=== PATIENT | male | born 1975 | race Caucasian/White ===

== ENCOUNTER 2020-08-08 07:17 | Emergency (ER) | payer MEDICAID, SELFPAY ==
[2020-08-08 07:18] VITALS: BP 168/96; PULSE 68; RESP 13; TEMP 36.4; O2SAT 94; BMI 24.2
--- NOTE | 2020-08-08 07:28 | EKG12_ITS ---
Test Reason : Blood Pressure : / mmHG Vent. Rate : 063 BPM Atrial Rate : 063 BPM P-R Int : 134 ms QRS Dur : 104 ms QT Int : 446 ms P-R-T Axes : 026 090 070 degrees QTc Int : 456 ms Sinus rhythm with occasional Premature ventricular complexes Rightward axis Borderline ECG Confirmed by GIACOMO AVILEZ, ROSA ([id number]), publishing editor RUSSEL WHITESIDE ([id number]) on 08/10/2020 8:36:28 AM Referred By: Confirmed By:ROSA GOODEN MD
[2020-08-08] MEDS: Morphine 4 MG/ML Syringe IV ×2 (07:33→08:55)
[2020-08-08] MEDS: Ondansetron 4 MG/2 ML Vial IV (07:33)
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
[2020-08-08 07:41] LABS: Absolute Lymphocyte Count 1.81 X10^3/uL (0.83-4.51); Absolute Neutrophil Count 5.7 X10^3/uL (2.0-7.7); Basophil# 0.06 X10^3/uL; Basophil% 0.7 % (0-1); Eosinophil# 0.25 X10^3/uL; Eosinophils% 2.9 % (0-5); Hematocrit 34.9 % (40-54); Hemoglobin 11.9 g/dL (13.0-16.5); Lymphocyte # 1.81 X10^3/ul (4.0); Lymphocyte % 21.3 % (19-41); Mean Corp Hgb Conc 34.1 g/dL (32-36); Mean Corpuscular Hgb 29.5 pg (27.0-32.0); Mean Corpuscular Volume 86.6 fL (80-94); Mean Platelet Vol. 9.4 fl (6.2-12.0); Monocyte# 0.69 X10^3/uL; Monocyte% 8.1 % (0-10); NRBC Flagged by Analyzer 0 % (0-5); Neutrophil # 5.66 X10^3/uL (2.7-7.7); Neutrophil % 66.8 % (47-70); Platelet Count 237 K/mm3 (150-450); RBC Distribution Width CV 12.2 % (11.6-14.6); RBC Distribution Width SD 38.7 fl (35.1-43.9); Red Blood Count 4.03 M/mm3 (4.6-6.2); White Blood Count 8.5 K/mm3 (4.4-11.0)
[2020-08-08] MEDS: 0.9% Normal Saline 1,000 ML 150 ML IV (07:44)
[2020-08-08 07:46] LABS: Bacteria 0 SEEN /hpf (None Seen); Mucous, Urine 0 SEEN /hpf (<or=2+); Squamous Epithelial Cells - UA 0 SEEN /hpf (0-5); White Blood Cells 0 SEEN /hpf (0-5)
--- NOTE | 2020-08-08 07:46 | ED.RN ---
attempted to call girlfriend at pt request. unable to leave a message and she did not waste picker
[2020-08-08 07:48] LABS: Color, Urine Yellow (Yellow); Glucose, Dipstick Normal (Normal); Ketone-Dipstick Negative (Negative); Leukocyte Esterase-Dipstick Negative /ul (Negative); Nitrite-Dipstick Negative (Negative); Occult Blood-Urine 10 /ul (Negative); Protein-Dipstick 15 mg/dl (Negative); Specific Gravity, Urine 1.015 (1.002-1.030); Urine Bilirubin Dipstick Negative (Negative); Urine Clarity Clear (Clear); Urine Urobilinogen Normal (Normal); Urine pH 6.5 (5.0 - 8.0)
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
[2020-08-08 07:59] LABS: ALB/GLOB Ratio 1.1 RATIO (0.9-2.4); AST(SGOT) 112 U/L (15-37); Alanine Aminotransfer ALT/SGPT 66 U/L (16-61); Albumin, Serum 3.7 g/dL (3.2-5.0); Alkaline Phosphatase 73 U/L (45-117); Anion Gap 5 (5-15); BUN 33 mg/dL (7-18); BUN/Creat Ratio 34.4 RATIO (10-20); Calcium,Total 8.8 mg/dL (8.5-10.1); Chloride 107 mmol/L (98-107); Creatinine, Serum 0.96 mg/dL (0.70-1.30); EST Glomerular Filtration Rate 89 mL/min (>60); Est Glom Filt Rate - Afr Amer 108 mL/min (>60); Estimated Creatinine Clearance 95.13 ml/min; Globulin 3.4 g/dL (2.2-4.2); Glucose 111 mg/dL (74-106); Lipase 168 U/L (73-393); Potassium 3.2 mmol/L (3.5-5.1); Protein, Total 7.1 g/dL (6.4-8.2); Sodium Level 139 mmol/L (136-145)
[2020-08-08 08:03] LABS: Red Blood Cells-Urine 0-5 SEEN /hpf (0-5)
[2020-08-08 08:03] LABS: International Normalized Ratio 0.9
[2020-08-08 08:04] LABS: Partial Thromboplast Time 25.1 Seconds (24.1-36.2)
[2020-08-08 08:06] LABS: Alcohol, Blood (Medical)-Serum < 3.0 mg/dL
[2020-08-08 08:06] LABS: Amphetamine Urine VISTA POSITIVE (<1000 ng/mL); Barbiturate Urine VISTA NEGATIVE (< 200 ng/mL); Benzodiazepine Urine VISTA NEGATIVE (< 200 ng/mL); Cocaine Urine VISTA NEGATIVE (< 300 ng/mL); Ecstacy Urine VISTA POSITIVE (< 500 ng/mL); Methadone Urine VISTA NEGATIVE (< 300 ng/mL); PCP Urine VISTA NEGATIVE (< 25 ng/mL); THC Urine VISTA POSITIVE (< 50 ng/mL); Vista UDS pH Range 6
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
[2020-08-08 09:17] VITALS: BP 207/120; PULSE 75; RESP 18; O2SAT 94
[2020-08-08 09:18] VITALS: BP 207/120; PULSE 75; RESP 18; O2SAT 94
== END 2020-08-08 09:22 | disposition short-term general hospital (02) ==
PROVIDERS: Emergency Provider Emergency Medicine
DX: S42.215A Unspecified nondisplaced fracture of surgical neck of left humerus, initial encounter for closed fracture (principal); S20.219A Contusion of unspecified front wall of thorax, initial encounter; S02.2XXA Fracture of nasal bones, initial encounter for closed fracture; R79.89 Other specified abnormal findings of blood chemistry; F17.200 Nicotine dependence, unspecified, uncomplicated; V43.52XA Car driver injured in collision with other type car in traffic accident, initial encounter; Y93.I9 Activity, other involving external motion; Y92.410 Unspecified street and highway as the place of occurrence of the external cause; Y99.8 Other external cause status
CPT/HCPCS: 70450; 70486; 71045; 71260; 72125; 72170; 73030; 74177; 80053; 80307; 80320; 81001; 83690; 84484; 85025; 85610; 85730; 93005; 96361; 96374; 96375; 96376; 99285; J7030; Q9967; A4216; G0480; J2405

== ENCOUNTER 2022-12-11 10:02 | Day surgery (SDC) | payer MEDICAID, SELFPAY ==
[2022-12-11] VITALS (7 sets, daily range): BP systolic 117–139; BP diastolic 73–90; PULSE 63–76; RESP 16–17; TEMP 36.3–36.4; O2SAT 98–99; BMI 24.9
[2022-12-11] MEDS: Lactated Ringers 1,000 ML 15 ML IV (10:25)
--- NOTE | 2022-12-11 10:45 | COLBX_PTH ---
PATIENT: SHAMEKA HARDY LOC: EN U#:[id number] AGE/SX: 47/M ROOM: RE12/11/[address]: Dr. Sonido Powell MD : [id number] BED: DIS: 12/11/2022 SPEC #: [id number] RECD: 12/11/22 17:05 STATUS: MEEK TAVO #: [id number] GERHARD: 12/11/22 10:[address]: Sonido Powell DEPT: SURGICAL PATHOLOGY RECD BY: Nicole Melendez ENTERED: 12/12/22 10:36 SP TYPE: COLON BX OTHR DR: Dr. Teresa Torrez MD Tissues: Sigmoid colon biopsy Procedures: Surgery Specimen Level IV HEADER OPERATION: Colonoscopy ? open access (MAC) PRE-OP DIAGNOSIS: Screening TISSUE SUBMITTED: Sigmoid colon polyp MICROSCOPIC DIAGNOSIS Sigmoid colon polyp, biopsy: Fragments of hyperplastic polyp. AM:chin 12/13/2022 MICROSCOPIC DESCRIPTION Slides are reviewed. GROSS DESCRIPTION Received in fixative is one container labeled with the patient's name and designated sigmoid colon polyp. The specimen consists of a lew-pink polyp measuring 0.8 x 0.5 x 0.3 cm. A few fragments of fecal material are also noted. The entire specimen is submitted in one cassette. / SJ:rg 12/12/2022 TC:5 CPT: 02760
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
--- NOTE | 2022-12-11 11:58 | OP.COLON_ITS ---
Patient Name: Mir Thompson Procedure Date: 12/11/2022 11:29 AM Date of : 1975 Age: 47 Procedure: Colonoscopy Indications: Screening in patient at increased risk: Colorectal cancer in mother before age 60 Providers: Sonido Powell MD Referring MD: Sonido Powell MD Medicines: Monitored Anesthesia Care Patient Profile: This is a 47 year old male. Refer to note in patient chart for documentation of history and physical. Last Colonoscopy: none. The patient's first colonoscopy is today. Complications: No immediate complications. Procedure: Pre-Anesthesia Assessment: - Prior to the procedure, a History and Physical was performed, and patient medications and allergies were reviewed. The patient's tolerance of previous anesthesia was also reviewed. The risks and benefits of the procedure and the sedation options and risks were discussed with the patient. All questions were answered, and informed consent was obtained. Prior Anticoagulants: The patient has taken no previous anticoagulant or antiplatelet agents. After reviewing the risks and benefits, the patient was deemed in satisfactory condition to undergo the procedure. After I obtained informed consent, the scope was passed under direct vision. Throughout the procedure, the patient's blood pressure, pulse, and oxygen saturations were monitored continuously. The adult colonoscope was introduced through the anus and advanced to the cecum, identified by appendiceal orifice and ileocecal valve. The colonoscopy was performed without difficulty. The patient tolerated the procedure well. The quality of the bowel preparation was good. Scope In: 11:37:16 AM Scope Withdrawal Time 0 hours 6 minutes 16 seconds Scope Out: 11:53:13 AM Total Procedure Duration Time 0 hours 15 minutes 57 seconds Findings: A small polyp was found in the sigmoid colon. The polyp was removed with a hot snare. Resection and retrieval were complete. The exam was otherwise without abnormality on direct and retroflexion views. Impression: - One small polyp in the sigmoid colon, removed with a hot snare. Resected and retrieved. - The examination was otherwise normal on direct and retroflexion views. Recommendation: - Discharge patient to home. - Resume previous diet. - Continue present medications. - Await pathology results. - Repeat colonoscopy in 5 years for surveillance based on pathology results. Procedure Code(s): --- Professional --- 63088, 33, Colonoscopy, flexible; with removal of tumor(s), polyp(s), or other lesion(s) by snare technique Diagnosis Code(s): --- Professional --- Z80.0, Family history of malignant neoplasm of digestive organs D12.5, Benign neoplasm of sigmoid colon CPT copyright 2017 [employer]. All rights reserved. The codes documented in this report are preliminary and upon bad work gatherer review may be revised to meet current compliance requirements. Sonido Powell MD 12/11/2022 11:57:52 AM This report has been signed electronically. Number of Addenda: 0 Note Initiated On: 12/11/2022 11:29 AM
--- NOTE | 2022-12-11 11:59 | OP.CCLET_ITS ---
12/11/2022 Teresa Torrez [address] [phone] Re : Colonoscopy procedure for Mirreji Christiansonmonica Dear Dr. Torrez This procedure was performed on Sunday, December 11, 2022. My impressions and recommendations are as follows: Impressions : - One small polyp in the sigmoid colon, removed with a hot snare. Resected and retrieved. - The examination was otherwise normal on direct and retroflexion views. Recommendations : - Discharge patient to home. - Resume previous diet. - Continue present medications. - Await pathology results. - Repeat colonoscopy in 5 years for surveillance based on pathology results. My findings are described in the full procedure note, which is enclosed. If I can be of further assistance, please feel free to contact me at Doctor phone number(s): , Work: . Sincerely, Sonido Powell MD 12/11/2022 11:57:52 AM This report has been signed electronically.
== END 2022-12-11 12:53 | disposition home or self-care (01) ==
LOC: EN 10:05 → AC 10:07
PROVIDERS: PCP Internal Medicine Infectious Disease; Referring Provider Internal Medicine Infectious Disease; Visit Provider Surgery
PROC: 0DJD8ZZ Inspection of Lower Intestinal Tract, Via Natural or Artificial Opening Endoscopic (ICD-10-PCS; CPT 45378; principal; 2022-12-11 10:40)
DX: Z12.11 Encounter for screening for malignant neoplasm of colon (principal); D12.5 Benign neoplasm of sigmoid colon; I10 Essential (primary) hypertension; F17.210 Nicotine dependence, cigarettes, uncomplicated; Z79.1 Long term (current) use of non-steroidal anti-inflammatories (NSAID); Z80.0 Family history of malignant neoplasm of digestive organs
CPT/HCPCS: 45385; 88305; J7120; J2405

== ENCOUNTER → 2022-12-20 | Outpatient (CLI) | payer MEDICAID, SELFPAY ==
--- NOTE | 2022-12-20 18:07 | CT_ITS ---
STUDY: CT MAXILLOFACIAL SINUSES REASON FOR EXAM: Male, 47 years old. Sinusitis. RADIATION DOSAGE (If Supplied By Facility): CTDIvol = ( 33.06 ) mGy, DLP = ( 887.57 ) mGycm TECHNIQUE: The patient was scanned in a multi detector CT scanner. High resolution axial imaging was performed without the administration of intravenous contrast material. Sagittal and coronal images were reconstructed. Individualized dose optimization techniques were used for this CT. COMPARISON: August 08, 2020 CT scan sinuses FINDINGS: FRONTAL SINUSES: Normal aeration, without mucosal inflammatory disease. ETHMOIDAL SINUSES: There is minimal ethmoid sinus mucosal thickening. There is chronic inward deviation of the lower right lateral wall of the maxillary sinus status post trauma. MAXILLARY SINUSES: There is trace right-sided maxillary mucosal thickening similar to prior study. SPHENOIDAL SINUSES: Normal aeration, without mucosal inflammatory disease. There is patency of the bilateral maxillary infundibuli with normal uncinate processes, ethmoid bullae, and hiatus semilunaris. There is a sabine bullosa of the right middle turbinate. Normal bilateral inferior turbinates. There is slight irregularity of the midline nasal septum with slight angulation to the left which may be posttraumatic. There is mild narrowing of the left greater than right nasal airways due to the hypertrophy of the inferior aspect of the left inferior turbinate. The visualized osseous structures demonstrate prior fractures. The visualized bilateral orbital contents are normal. There are chronic appearing bilateral cortical irregularities of the Nasal Bones status post nasal bone fractures that were seen on the prior study. There is partial visualization calcification of the carotid arteries. The visualized degenerative change of the cervical spine. The cerebral ventricles are symmetric. There is no visualized midline shift, edema. CT/Sinus/Facial Bone IMPRESSION: Minimal mucoid thickening. Minimal ethmoid sinusitis. Small right side middle turbinate sabine bullosa. Posttraumatic change of the bilateral nasal bones and septum and right maxillary sinus.. Electronically Signed: Brenda Dyson MD at 23:02 EST ,
== END | disposition home or self-care (01) ==
PROVIDERS: PCP Internal Medicine Infectious Disease; Visit Provider Otolaryngology
DX: J32.9 Chronic sinusitis, unspecified (principal)
CPT/HCPCS: 70486

== ENCOUNTER → 2023-05-17 | Outpatient (CLI) | payer MEDICAID, SELFPAY ==
--- NOTE | 2023-05-17 11:49 | EKG12_ITS ---
Test Reason : PREOP Blood Pressure : / mmHG Vent. Rate : 077 BPM Atrial Rate : 077 BPM P-R Int : 124 ms QRS Dur : 096 ms QT Int : 382 ms P-R-T Axes : 008 088 083 degrees QTc Int : 432 ms Normal sinus rhythm Normal ECG Confirmed by MICHAEL AVILEZ, SERENITY ([id number]), photography editor RUSSEL WHITESIDE ([id number]) on 05/20/2023 1:09:38 PM Referred By: Jerrod Dyer Confirmed By:EDMOND RODRIGUEZ MD
== END | disposition home or self-care (01) ==
LOC: PSN 11:48
PROVIDERS: PCP Internal Medicine Infectious Disease; Referring Provider Otolaryngology; Visit Provider Otolaryngology
DX: Z01.818 Encounter for other preprocedural examination (principal)
CPT/HCPCS: 93005

== ENCOUNTER → 2023-05-22 | Outpatient (CLI) | payer MEDICAID, SELFPAY ==
[2023-05-22 16:14] LABS: Hemoglobin 13.4 g/dL (13.0-16.5); Mean Corp Hgb Conc 35.3 g/dL (32-36); Mean Corpuscular Hgb 31.4 pg (27.0-32.0); Mean Platelet Vol. 9.4 fl (6.2-12.0); Platelet Count 258 K/mm3 (150-450); RBC Distribution Width SD 39.1 fl (35.1-43.9); Red Blood Count 4.27 M/mm3 (4.6-6.2); White Blood Count 7.7 K/mm3 (4.4-11.0)
[2023-05-22 16:39] LABS: Anion Gap 7 (5-15); BUN 19 mg/dL (7-18); BUN/Creat Ratio 19.2 RATIO (10-20); Calcium,Total 8.4 mg/dL (8.5-10.1); Chloride 105 mmol/L (98-107); Creatinine, Serum 0.99 mg/dL (0.70-1.30); EST Glomerular Filtration Rate 85 mL/min (>60); Est Glom Filt Rate - Afr Amer 103 mL/min (>60); Glucose 113 mg/dL (74-106); Potassium 3.8 mmol/L (3.5-5.1); Sodium Level 134 mmol/L (136-145)
== END | disposition home or self-care (01) ==
LOC: LAB 15:41
PROVIDERS: PCP Internal Medicine Infectious Disease; Referring Provider Otolaryngology; Visit Provider Otolaryngology
DX: Z01.818 Encounter for other preprocedural examination (principal)
CPT/HCPCS: 36415; 80048; 85027

== ENCOUNTER → 2024-05-05 | Outpatient (CLI) | payer BC, SELFPAY | END | disposition home or self-care (01) | LOC: LAB 16:17 | PROVIDERS: PCP Internal Medicine Infectious Disease; Referring Provider Urology; Visit Provider Urology | DX: Z12.5 Encounter for screening for malignant neoplasm of prostate (principal) | CPT/HCPCS: 36415; 84153; G0103 ==

== ENCOUNTER 2025-08-15 03:30 | Emergency (ER) | payer OTHER, SELFPAY ==
[2025-08-15 03:32] VITALS: BP 142/82; PULSE 111; RESP 16; TEMP 36.6; O2SAT 98; BMI 26.3
--- NOTE | 2025-08-15 04:03 | EX.ED.DYSGE1 ---
HPI History of Present Illness Chief Complaint: Wound Informant: patient and spouse/S.O. Narrative Narrative: Patient is a 50-year-old male presenting with a painful abscess on the buttock. - Reports a recurrent abscess on the buttock that has been present for approximately one year, but started recurring 1 week ago. - Over the past few days, the abscess has become increasingly painful and enlarged. - Noticed significant enlargement and spontaneous drainage after showering tonight. - Denies fever or other systemic symptoms. PFSH PFSH Medical History Loss of hearing Wears dentures Depression Anxiety Marijuana use Alcohol use History of steroid therapy Arthritis Restless legs Injury of head and neck Loss of consciousness Shortness of breath on exertion Chronic cough History of edema Smoker History of irregular heartbeat Seasonal allergies GERD (gastroesophageal reflux disease) Anxiety and depression HTN (hypertension) Home Medications ?Medication ?Instructions ?Recorded ?Last Taken ?Type acetaminophen 325 mg tablet 325 mg PO ONCE PRN Pain 11/22/22 Unknown History ibuprofen 400 mg tablet 400 mg PO Q8H PRN Pain 12/10/22 Unknown History sulfamethoxazole 800 1 tab PO BID #20 TABLETS 08/15/25 Unknown Rx mg-trimethoprim 160 mg tablet tamsulosin 0.4 mg capsule 0.4 mg PO DAILY 08/15/25 Unknown History Allergy/AdvReac Type Severity Reaction Status Date / Time No Known Allergies Allergy Verified 08/15/25 03:37 Family History (Updated 11/22/22 @ 12:37 by Chelsea Velásquez) Father Colon cancer Surgical History Hx of tooth extraction Social History (Updated 11/22/22 @ 12:37 by Chelsea Velásquez) household members: spouse current occupational status: employed Smoking Status: Current every day smoker tobacco type: cigarettes ROS ROS ED ROS Narrative Constitutional: (-) fever Musculoskeletal: (+) buttock pain Skin: (+) buttock swelling, (+) purulent buttock drainage Constitutional Constitutional ED: Denies chills or fever(s) EXAM Physical Exam Narrative Exam Narrative: General: No acute distress. Skin: Three centimeter erythematous abscess with small amount of spontaneous purulent drainage on left buttock. Const Vital Signs: 08/15/25 03:32 Temperature 97.8 F Temperature Source Oral Pulse Rate 111 H Respiratory Rate 16 Blood Pressure 142/82 H Blood Pressure Mean 102 Pulse Ox 98 Oxygen Delivery Method Room Air Resp normal respiratory effort Extremity normal to inspection Neuro oriented x3, CN's II-XII intact bilaterally, no sensory deficits noted and gait normal Motor Exam: strength 5/5 throughout MDM MDM MDM Narrative Medical decision making narrative: Evaluation is consistent with a cutaneous abscess on the left buttock. It was incised and drained after informed consent; please see the procedure note. He will be started on Bactrim, which provides the best MRSA coverage on an outpatient basis according to our most recent antibiogram. He will also use sitz baths and follow up on an outpatient basis with surgery as needed, or return to the ER if his condition worsens. He is comfortable with this plan. Procedures Other Procedures Procedure(s): Complex abscess incision and drainage: After informed consent from the patient, the area was sterilized with chlorhexidine draped in a sterile fashion, locally anesthetized with a total of 5 cc of plain 1% lidocaine, incised centrally, purulence was expressed, the area was deloculated with hemostats, irrigated with saline from the inside out, and packed with quarter inch iodoform gauze. Tolerated well no complications, dressed with bacitracin. Discharge Plan Triage Chief Complaint: Wound ED Provider: Luis Merritt Dx/Rx/DC Orders Clinical Impression: Abscess of left buttock Instructions: Taking a Sitz Bath, ED Abscess Incision And Drainage Prescriptions: New sulfamethoxazole-trimethoprim 800-160 mg tablet 1 tab PO BID Qty: 20 0RF No Action acetaminophen 325 mg tablet 325 mg PO ONCE PRN (Reason: Pain) ibuprofen 400 mg Tablet 400 mg PO Q8H PRN (Reason: Pain) tamsulosin 0.4 mg capsule 0.4 mg PO DAILY Primary Care Provider: Care Physician,No Primary Referrals: Sonido Powell MD [Med Staff - Active Staff, General Surgery] - 3-5 Days if not improving Activity Restrictions/Additional Instructions: Try to leave packing intact for 48 hours and then remove and discard. If it falls out earlier than that, do not worry about it, just continue dressing changes. If there is any water that gets into the area after a shower or what not, you may gently apply pressure to the surrounding area to express it prior to a new dressing change. Antibiotic ointment on the area with these dressing changes okay as well. If you are concerned about it recurring or getting worse, return to the ER for reevaluation. Perform sitz bath as 2-3 times daily for the first 2 days while packing is in place. Print Language: Egyptian Disposition Disposition: Home, Self Care
[2025-08-15] MEDS: Lidocaine 1% (20 ml mdv) 20 ML Vial INFILT (04:15)
--- OUTSIDE RECORDS SUMMARY | 2025-08-15 04:35 | XMS RPT_ITS | CCD ---
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 in humans and is not intended to detect influenza C. Performed By: #### F GAVIN, COVD19 #### [address] [place], [place] [address] RSV PCR (AO) Negative Normal Negative [facility] ([place]) Comment on above: Result Comment: Posi tive Results: Positive Flu A/B or RSV for by PCR. Positive test results do not rule out bacterial infection or co-infection with other pathogens. Test results should be interpreted in conjunction with other laboratory and clinical data. Negative Results: Negative for by PCR. Negative test results do not preclude influenza virus or RSV infection and should not be used as the sole basis for diagnosis, treatment, or other management decisions. There is a risk of false negative RSV results when at low concentration and in the presence of co-infection with high concentration of influenza A. Invalid Results: An Invalid result (INV) was obtained. The test was repeated with similar results. REPEAT COLLECTION AND TESTING IS RECOMMENDED. The [employer] Flu A/B & RSV Assay is a real-time polymerase chain reaction (PCR) based qualitative in vitro diagnostic test for the direct detection and differentiation of influenza A virus, influenza B virus, and respiratory syncytial virus (RSV) nucleic acid in nasopharyngeal swab ([employer]PA[employer] SUPER[employer]OR) specimens from patients with signs and symptoms of respiratory infection in conjunction with clinical and laboratory findings. The test is intended for use as an aid in the differential diagnosis of influenza A virus, influenza B virus, and RSV in humans and is not intended to detect influenza C. Performed By: #### F PATRICKRSV, COVD19 #### [address] [place], [place] [address] LABORATORYOrdered By: Felicita Levine on 10-29-2023 FLUAV RNA DANGELO+probe Ql (Upper resp) Negative 1 (10/29/23 8:09 PM) Normal Negative AO Auto Urine SS Comment on above: Interpretive Data: P ositive Results: Positive Flu A/B or RSV for by PCR. Positive test results do not rule out bacterial infection or co-infection with other pathogens. Test results should be interpreted in conjunction with other laboratory and clinical data. Negative Results: Negative for by PCR. Negative test results do not preclude influenza virus or RSV infection and should not be used as the sole basis for diagnosis, treatment, or other management decisions. There is a risk of false negative RSV results when at low concentration and in the presence of co-infection with high concentration of influenza A. Invalid Results: An Invalid result (INV) was obtained. The test was repeated with similar results. REPEAT COLLECTION AND TESTING IS RECOMMENDED. The [employer] Flu A/B & RSV Assay is a real-time polymerase chain reaction (PCR) based qualitative in vitro diagnostic test for the direct detection and differentiation of influenza A virus, influenza B virus, and respiratory syncytial virus (RSV) nucleic acid in nasopharyngeal swab ([employer]PA[employer]PER[employer]OR) specimens from patients with signs and symptoms of respiratory infection in conjunction with clinical and laboratory findings. The test is intended for use as an aid in the differential diagnosis of influenza A virus, influenza B virus, and RSV in humans and is not intended to detect influenza C. FLUBV RNA DANGELO+probe Ql (Upper resp) Negative 2 (10/29/23 8:09 PM) Normal Negative AO Auto Urine SS Comment on above: Interpretive Data: P ositive Results: Positive Flu A/B or RSV for by PCR. Positive test results do not rule out bacterial infection or co-infection with other pathogens. Test results should be interpreted in conjunction with other laboratory and clinical data. Negative Results: Negative for by PCR. Negative test results do not preclude influenza virus or RSV infection and should not be used as the sole basis for diagnosis, treatment, or other management decisions. There is a risk of false negative RSV results when at low concentration and in the presence of co-infection with high concentration of influenza A. Invalid Results: An Invalid result (INV) was obtained. The test was repeated with similar results. REPEAT COLLECTION AND TESTING IS RECOMMENDED. The [employer] Flu A/B & RSV Assay is a real-time polymerase chain reaction (PCR) based qualitative in vitro diagnostic test for the direct detection and differentiation of influenza A virus, influenza B virus, and respiratory syncytial virus (RSV) nucleic acid in nasopharyngeal swab ([employer]PA[employer]PER[employer]OR) specimens from patients with signs and symptoms of respiratory infection in conjunction with clinical and laboratory findings. The test is intended for use as an aid in the differential diagnosis of influenza A virus, influenza B virus, and RSV in humans and is not intended to detect influenza C. RSV RNA DANGELO+probe Ql (Upper resp) Negative 3 (10/29/23 8:09 PM) Normal Negative AO Auto Urine SS Comment on above: Interpretive Data: P ositive Results: Positive Flu A/B or RSV for by PCR. Positive test results do not rule out bacterial infection or co-infection with other pathogens. Test results should be interpreted in conjunction with other laboratory and clinical data. Negative Results: Negative for by PCR. Negative test results do not preclude influenza virus or RSV infection and should not be used as the sole basis for diagnosis, treatment, or other management decisions. There is a risk of false negative RSV results when at low concentration and in the presence of co-infection with high concentration of influenza A. Invalid Results: An Invalid result (INV) was obtained. The test was repeated with similar results. REPEAT COLLECTION AND TESTING IS RECOMMENDED. The [employer] Flu A/B & RSV Assay is a real-time polymerase chain reaction (PCR) based qualitative in vitro diagnostic test for the direct detection and differentiation of influenza A virus, influenza B virus, and respiratory syncytial virus (RSV) nucleic acid in nasopharyngeal swab ([employer]BI[employer] REPAIR SUPERVISOR) specimens from patients with signs and symptoms of respiratory infection in conjunction with clinical and laboratory findings. The test is intended for use as an aid in the differential diagnosis of influenza A virus, influenza B virus, and RSV in humans and is not intended to detect influenza C. SARS-CoV-2 (COVID-19) RNA DANGELO+probe Ql (Resp) Negative results do not preclude SARS-CoV-2 infection and should not be used as the sole basis for patient management decisions. Negative results must be combined with clinical observations, patient history, and epidemiological information.There is a risk of false negative values resulting from improperly collected, transported, or handled specimens.There is a risk of false negative values due to the presence of sequence variants in the pathogen targets of the assay, procedural errors, amplification inhibitors in specimens, or inadequate numbers of organisms for amplification.Nutshell SARS-CoV-2 Assay is a Real-Time reverse-transcriptas e polymerase chain reaction (RT-PCR) based qualitative in vitro diagnostic test intended for the qualitative detection of nucleic acid from the SARS-CoV-2 in nasopharyngeal swab specimens collected from individuals suspected of COVID-19 by their healthcare provider. Testing is limited to laboratories certified under the Clinical Laboratory Improvement Amendments of 1988 (CLIA), 42 U.S.C. 263a, to perform moderate and high complexity tests. Invalid Interpretation Code AO Auto Urine SS Basophil percentageOrdered B y: Tessy Dyer on 05-22-2023 Chloride [Moles/Vol] 105 mmol/L 98-107 [facility] Glucose [Mass/Vol] 113 mg/dL 74-106 [facility] Comment on above: Fasting Glucose resu lt from 100 to 125 mg/dL suggests IMPAIRED HOMEOSTASIS per A.D.A. criteria. Potassium [Moles/Vol] 3.8 mmol/L 3.5-5.1 [facility] Sodium [Moles/Vol] 134 mmol/L 136-145 [facility] WBC (Bld) [#/Vol] 7.7 10*3/uL 4.4-11.0 [facility] Blood erythrocytes count (nu mber/volume)Ordered By: Tessy Dyer on 05-22-2023 RBC (Bld) [#/Vol] 4.27 10*6/uL 4.6-6.2 [facility] Blood hemoglobin measurement (mass/volume)Ordered By: Tessy Dyer on 05-22-2023 Hemoglobin (Bld) [Mass/Vol] 13.4 g/dL 13.0-16.5 [facility] Blood platelet mean volumeOr dered By: Tessy Dyer on 05-22-2023 Platelet mean volume (Bld) [Entitic vol] 9.4 fL 6.2-12.0 [facility] Determination of erythrocyte mean corpuscular volume (MCV)Ordered By: Tessy Dyer on 05-22-2023 MCV (RBC) [Entitic vol] 89.0 fL 80-94 [facility] Hematocrit Auto (Bld) [Volum e fraction]Ordered By: Tessy Dyer on 05-22-2023 Hematocrit (Bld) [Volume fraction] 38.0 % 40-54 [facility] Laboratory - Chemistry and C hemistry - challengeOrdered By: Tessy Dyer on 05-22-2023 CO2 [Moles/Vol] 22.0 mmol/L 21.0-32.0 [facility] Urea nitrogen/Creatinine [Mass ratio] 19.2 mg/mg 10-20 [facility] - Hematology and Cell countsOrdered By: Tessy Dyer on 05-22-2023 Erythrocyte distribution width (RBC) [Entitic vol] 39.1 fL 35.1-43.9 [facility] Erythrocyte distribution width (RBC) [Ratio] 12.0 % 11.6-14.6 [facility] MCH (RBC) [Entitic mass] 31.4 pg 27.0-32.0 [facility] MCHC Auto (RBC) [Mass/Vol]Or dered By: Tessy Dyer on 05-22-2023 MCHC (RBC) [Mass/Vol] 35.3 g/dL 32-36 [facility] No Panel InformationOrdered By: Tessy Dyer on 05-22-2023 Estimated GFR (MDRD) Amer 103 mL/min >60 [facility] Comment on above: GFR Calc Estimated GFR (MDRD) Non-Af Amer 85 mL/min >60 [facility] Comment on above: Non- GFR Calc Platelets bldOrdered By: Everette Dyer on 05-22-2023 Platelets (Bld) [#/Vol] 258 10*3/uL 150-450 [facility] Serum or plasma calcium adamaris urement (mass/volume)Ordered By: Tessy Dyer on 05-22-2023 Calcium [Mass/Vol] 8.4 mg/dL 8.5-10.1 [facility] Serum or plasma creatinine m easurement (mass/volume)Ordered By: Tessy Dyer on 05-22-2023 Creatinine [Mass/Vol] 0.99 mg/dL 0.70-1.30 [facility] Comment on above: The validity of the calculated GFR & GFRAA in patients over 70 years has not been determined. Clinical correlation is essential. Serum or plasma urea nitroge n measurement (mass/volume)Ordered By: Tessy Dyer on 05-22-2023 Urea nitrogen [Mass/Vol] 19 mg/dL -18 [facility] Thin prep Papanicolaou smear with manual screeningOrdered By: Tessy Dyer on 05-22-2023 Thin prep Papanicolaou smear with manual screening 7 5-[address] [facility] [address] CHEST WO IVCONon 03-29-20 Radiology Result ACTIONABLE Abnormal [facility] Hemoglobin A1con 11-03-2021 Glucose [Mass/Vol] 114 mg/dL Normal [facility] Comment on above: Performed By: #### H BA1C #### [facility] Routine Lab [address] [place], [place] [address] HbA1c (Bld) [Mass fraction] 5.6 % Normal 4.3-5.6 [facility] Comment on above: Performed By: #### H BA1C #### [facility] Routine Lab [address] [place], [place] [address] SHOULDER, CMPLT, MIN 2 VIEWS on 10-27-2020 SHOULDER, CMPLT, MIN 2 VIEWS Patient Name: MIR THOMPSON STUDY: SHOULDER, CMPLT, MIN 2 VIEWS; Left; 10/27/2020 11:16 am INDICATION: left humerus fracture. COMPARISON: None. ACCESSION NUMBER(S): [id number] ORDERING CLINICIAN: ALESHA CUELLAR FINDINGS: Left shoulder-AP external and internal rotation The comminuted displaced fracture at the surgical neck of the humerus is unchanged in position from previous examinations, with some callus formation present particularly laterally. The degree of callus formation has increased since the last examination of 09/17/2020. IMPRESSION: Further increase in bony callus formation at the comminuted fracture site in the surgical neck of the humerus. Lateral displacement of the distal fracture fragment unchanged from prior studies. Electronically signed by: LISSETTE RITTER MD [facility] SHOULDER, CMPLT, MIN 2 VIEWS on 09-27-2020 SHOULDER, CMPLT, MIN 2 VIEWS Patient Name: MIR THOMPSON STUDY: SHOULDER, CMPLT, MIN 2 VIEWS; Left; 09/27/2020 10:16 am INDICATION: proximal humerus fracture. COMPARISON: 09/06/2020 ACCESSION NUMBER(S): [id number] ORDERING CLINICIAN: ALESHA CUELLAR FINDINGS: LEFT SHOULDER-INTERNAL AND EXTERNAL OBLIQUE POSITIONS Comparison to the last examination of 09/06/2020, shows no change in position of the comminuted fracture fragments in the surgical neck of the humerus . The multiple comminuted fracture fragments are best seen on the external oblique view. Very slight callus formation is seen, on the lateral aspect of the proximal humerus which however was not present previously. IMPRESSION: Severely comminuted fracture of the surgical neck of the humerus with minimal callus formation present. No change in position of the fracture fragments from the previous study. Electronically signed by: LISSETTE RITTER MD [facility] SHOULDER, CMPLT, MIN 2 VIEWS on 09-06-2020 SHOULDER, CMPLT, MIN 2 VIEWS Patient Name: MIR THOMPSON STUDY: SHOULDER, CMPLT, MIN 2 VIEWS; Left; 09/06/2020 8:42 am INDICATION: proximal humerus fracture. COMPARISON: 08/15/2020 ACCESSION NUMBER(S): [id number] ORDERING CLINICIAN: ALESHA CUELLAR FINDINGS: Two views left shoulder: There is a comminuted fracture of the proximal left humeral diaphysis with unchanged position of the fractures compared to 08/15/2020 There is 7 mm lateral displacement of the distal main fracture fragment. IMPRESSION: Unchanged appearance comminuted fracture proximal left humeral diaphysis. Electronically signed by: HINA SERRANO MD [facility] HUMERUS, MIN 2 VIEWSon 08-15 HUMERUS, MIN 2 VIEWS Patient Name: MIR THOMPSON STUDY: HUMERUS, MIN 2 VIEWS; 08/15/2020 12:01 pm INDICATION: LEFT ARM FRACTURE. COMPARISON: None. ACCESSION NUMBER(S): [id number] ORDERING CLINICIAN: ALESHA CUELLAR FINDINGS: There is a mildly displaced fracture of the left humeral neck. Small bone fragments are noted. No dislocation. Glenohumeral joint as visualized is unremarkable. AC joint is normal in width. IMPRESSION: Mildly displaced fracture of the left femoral neck with small adjacent bone fragments. Electronically signed by: PRAMOD PERDUE MD [facility] Otheron 08-15-2020 XR Humerus 2 views Interpreted by: PRAMOD PERDUE08/16/20 12:53MRN: [id number] Name: HAYLEY MIR STUDY:HUMERUS, MIN 2 VIEWS; 08/15/2020 12:01 pm INDICATION:LEFT ARM FRACTURE. COMPARISON:None. ORDERING CLINICIAN:ALESHA CUELLAR FINDINGS:There is a mildly displaced fracture of the left humeral neck. Smallbone fragments are noted. No dislocation. Glenohumeral joint asvisualized is unremarkable. AC joint is normal in width. IMPRESSION:Mildly displaced fracture of the left femoral neck with smalladjacent bone fragments.Electronic ally signed by: PRAMOD PERDUE 08/16/20 12:53 Normal [facility] [address] Work Phone: Basic Metabolic Panelon 07-13 Anion gap [Moles/Vol] 7 Normal [facility] Comment on above: Performed By: #### E TOH4, BMP3, PT/AP, HEMOG #### [facility] [address] [place] [address] Calcium [Mass/Vol] 8.0 mg/dL Low 8.4-10.4 [facility] Comment on above: Performed By: #### E TOH4, BMP3, PT/AP, HEMOG #### [address] [place] [address] CO2 [Moles/Vol] 22 mmol/L Normal 22-30 [facility] Comment on above: Performed By: #### E TOH4, BMP3, PT/AP, HEMOG #### [facility] [address] [place] [address] Glucose [Mass/Vol] 104 mg/dL High 70-100 [facility] Comment on above: Performed By: #### E TOH4, BMP3, PT/AP, HEMOG #### [address] [place] [address] Urea nitrogen [Mass/Vol] 16 mg/dL Normal 7-20 [facility] Comment on above: Performed By: #### E TOH4, BMP3, PT/AP, HEMOG #### [facility] [address] [place] [address] Creatinine [Mass/Vol] 0.60 mg/dL Normal 0.52-1.25 [facility] Comment on above: Performed By: #### E TOH4, BMP3, PT/AP, HEMOG #### [address] [place] [address] GFR/1.73 sq M predicted among blacks MDRD (S/P/Bld) [Vol rate/Area] mL/min/{1.73_m2} Normal >60 [facility] Comment on above: Performed By: #### E TOH4, BMP3, PT/AP, HEMOG #### [facility] [address] [place], [place] GFR/1.73 sq M predicted among non-blacks MDRD (S/P/Bld) [Vol rate/Area] mL/min/{1.73_m2} Normal >60 [facility] Comment on above: Result Comment: KDIG O guidelines provide the following GFR categories: Stage GFR(ml/min/1.73 m2) Terms G1 >=90 Normal or high G2 60-89 Mildly decreased* G3a 45-59 Mildly to moderately decreased G3b 30-44 Moderately to severely decreased G4 15-29 Severely decreased G5 <15 Kidney failure *Relative to young adult level. In the absence of evidence of kidney damage, neither GFR category G1 nor G2 fulfill the criteria for CKD. The CKD-EPI equation is validated in individuals 18 years of age and older. Currently the best equation for estimating glomerular filtration rate (GFR) from serum creatinine in children is the Bedside Roca equation. It is less accurate in patients with extremes of muscle mass, restriction of dietary protein, ingestion of creatine, extra-renal metabolism of creatinine, or treatment with medications that affect renal tubular creatinine secretion. Performed By: #### E TOH4, BMP3, PT/AP, HEMOG #### [address] [place], [place] Potassium [Moles/Vol] 3.7 mmol/L Normal 3.5-5.1 [facility] Comment on above: Result Comment: Slig htly hemolysed, interpret with caution. Performed By: #### E TOH4, BMP3, PT/AP, HEMOG #### [facility] [address] [place], [place] Sodium [Moles/Vol] 130 mmol/L Low 135-145 [facility] Comment on above: Performed By: #### E TOH4, BMP3, PT/AP, HEMOG #### [facility] [address] [place], [place] Chloride [Moles/Vol] 101 mmol/L Normal 98-107 [facility] Comment on above: Performed By: #### E TOH4, BMP3, PT/AP, HEMOG #### [facility] [address] [place] [address] Basic Metabolic Panel w/ Ref sarah to MGon 08-09-2020 Anion gap [Moles/Vol] 7 mmol/L [place], [place] Calcium [Mass/Vol] 8.0 mg/dL Low 8.4 - 10. 4 mg/dL [place], [place] Chloride [Moles/Vol] 101 mmol/L 98 - 10 7 mmol/L [place] CO2 [Moles/Vol] 22 mmol/L 22 - 30 mmol/L [place] Creatinine [Mass/Vol] 0.6 mg/dL 0.52 - 1.25 mg/dL [place], [place] EGFR IF NonAfrican [place] Citizen >90.0 >60 mL/min [place], [place] Comment on above: KDIGO guidelines pro vide the following GFR categories: Stage GFR(ml/min/1.73 m2) Terms G1 >=90 Normal or high G2 60-89 Mildly decreased* G3a 45-59 Mildly to moderately decreased G3b 30-44 Moderately to severely decreased G4 15-29 Severely decreased G5 <15 Kidney failure *Relative to young adult level. In the absence of evidence of kidney damage, neither GFR category G1 nor G2 fulfill the criteria for CKD. The CKD-EPI equation is validated in individuals 18 years of age and older. Currently the best equation for estimating glomerular filtration rate (GFR) from serum creatinine in children is the Bedside Roca equation. It is less accurate in patients with extremes of muscle mass, restriction of dietary protein, ingestion of creatine, extra-renal metabolism of creatinine, or treatment with medications that affect renal tubular creatinine secretion. GFR/1.73 sq M predicted among blacks MDRD (S/P/Bld) [Vol rate/Area] mL/min/{1.73_m2} >60 mL/min [place], [place] Glucose [Mass/Vol] 104 mg/dL High 70 - 100 mg/dL [place] Interpretation and review of laboratory results Abnormal [place] Potassium [Moles/Vol] 3.7 mmol/L 3.5 - 5.1 mmol/L [place] Comment on above: Slightly hemolysed, interpret with caution. Sodium [Moles/Vol] 130 mmol/L Low 135 - 145 mmol/L [place] Urea nitrogen [Mass/Vol] 16 mg/dL 7 - 20 mg/dL [place] Test Performed by [facility] [employer] [facility], [address] [place] [id number] [place], [place] CBCon 08-09-2020 Erythrocyte distribution width (RBC) [Ratio] 13.2 % 11.5 - 14.5 % [place], [place] Hematocrit (Bld) [Volume fraction] 37.2 % Low 40 - 52 % [place] Hemoglobin (Bld) [Mass/Vol] 12.7 g/dL Low 13 - 18 g/dL [place] Interpretation and review of laboratory results Abnormal [place] MCH (RBC) [Entitic mass] 30.0 pg 26 - 34 pg [place] MCHC (RBC) [Mass/Vol] 34.1 % 32 - 36 % [place], [place] MCV (RBC) [Entitic vol] 87.9 fL 80 - 98 fL [place], [place] Platelet mean volume (Bld) [Entitic vol] 7.8 fL 7.4 - 10.4 fL [place] Platelets (Bld) [#/Vol] 225 10*3/uL 140 - 440 10*3/uL [place] RBC (Bld) [#/Vol] 4.23 10*6/uL Low 4.4 - 5.9 10*6/uL [place] WBC (Bld) [#/Vol] 7.3 10*3/uL 3.6 - 10.7 10*3/uL [place], [place] Test Performed by [facility] [employer] [facility], [address] [place] [id number] [place], [place] Hemogramon 08-09-2020 Erythrocyte distribution width (RBC) [Ratio] 13.2 % Normal 11.5-14.5 [facility] Comment on above: Performed By: #### E TOH4, BMP3, PT/AP, HEMOG #### [address] [place], [place] Hematocrit (Bld) [Volume fraction] 37.2 % Low 40.0-52.0 [facility] Comment on above: Performed By: #### E TOH4, BMP3, PT/AP, HEMOG #### [address] Hemoglobin (Bld) [Mass/Vol] 12.7 g/dL Low 13.0-18.0 [facility] Comment on above: Performed By: #### E TOH4, BMP3, PT/AP, HEMOG #### [address] MCH (RBC) [Entitic mass] 30.0 pg Normal 26.0-34.0 [facility] Comment on above: Performed By: #### E TOH4, BMP3, PT/AP, HEMOG #### [address] MCHC (RBC) [Mass/Vol] 34.1 % Normal 32.0-36.0 [facility] Comment on above: Performed By: #### E TOH4, BMP3, PT/AP, HEMOG #### [address] MCV (RBC) [Entitic vol] 87.9 fL Normal 80.0-98.0 [facility] Comment on above: Performed By: #### E TOH4, BMP3, PT/AP, HEMOG #### [address] Platelet mean volume (Bld) [Entitic vol] 7.8 fL Normal 7.4-10.4 [facility] Comment on above: Performed By: #### E TOH4, BMP3, PT/AP, HEMOG #### [address] Platelets (Bld) [#/Vol] 225 10*3/uL Normal 140-440 [facility] Comment on above: Performed By: #### E TOH4, BMP3, PT/AP, HEMOG #### [address] [place], [place] RBC (Bld) [#/Vol] 4.23 10*6/uL Low 4.40-5.90 [facility] Comment on above: Performed By: #### E TOH4, BMP3, PT/AP, HEMOG #### [address] [place], [place] WBC (Bld) [#/Vol] 7.3 10*3/uL Normal 3.6-10.7 [facility] Comment on above: Performed By: #### E TOH4, BMP3, PT/AP, HEMOG #### [address] Basic Metabolic Panelon 07-13 Calcium [Mass/Vol] 8.6 mg/dL Normal 8.4-10.4 [facility] Comment on above: Performed By: #### E TOH4, BMP3, PT/AP, HEMOG #### [address] [place], [place] Anion gap [Moles/Vol] 10 Normal [facility] Comment on above: Performed By: #### E TOH4, BMP3, PT/AP, HEMOG #### [address] [place], [place] CO2 [Moles/Vol] 19 mmol/L Low 22-30 [facility] Comment on above: Performed By: #### E TOH4, BMP3, PT/AP, HEMOG #### [address] [address] [place], [place] Creatinine [Mass/Vol] 0.67 mg/dL Normal 0.52-1.25 [facility] Comment on above: Performed By: #### E TOH4, BMP3, PT/AP, HEMOG #### [address] GFR/1.73 sq M predicted among blacks MDRD (S/P/Bld) [Vol rate/Area] mL/min/{1.73_m2} Normal >60 [facility] Comment on above: Performed By: #### E TOH4, BMP3, PT/AP, HEMOG #### [address] [place], [place] GFR/1.73 sq M predicted among non-blacks MDRD (S/P/Bld) [Vol rate/Area] mL/min/{1.73_m2} Normal >60 [facility] Comment on above: Result Comment: KDIG O guidelines provide the following GFR categories: Stage GFR(ml/min/1.73 m2) Terms G1 >=90 Normal or high G2 60-89 Mildly decreased* G3a 45-59 Mildly to moderately decreased G3b 30-44 Moderately to severely decreased G4 15-29 Severely decreased G5 <15 Kidney failure *Relative to young adult level. In the absence of evidence of kidney damage, neither GFR category G1 nor G2 fulfill the criteria for CKD. The CKD-EPI equation is validated in individuals 18 years of age and older. Currently the best equation for estimating glomerular filtration rate (GFR) from serum creatinine in children is the Bedside Roca equation. It is less accurate in patients with extremes of muscle mass, restriction of dietary protein, ingestion of creatine, extra-renal metabolism of creatinine, or treatment with medications that affect renal tubular creatinine secretion. Performed By: #### E TOH4, BMP3, PT/AP, HEMOG #### [address] [address] [place], [place] Glucose [Mass/Vol] 110 mg/dL High 70-100 [facility] Comment on above: Performed By: #### E TOH4, BMP3, PT/AP, HEMOG #### [address] [address] [place], [place] Urea nitrogen [Mass/Vol] 25 mg/dL High 7-20 [facility] Comment on above: Performed By: #### E TOH4, BMP3, PT/AP, HEMOG #### [address] Chloride [Moles/Vol] 104 mmol/L Normal 98-107 [facility] Comment on above: Performed By: #### E TOH4, BMP3, PT/AP, HEMOG #### [address] Potassium [Moles/Vol] 3.5 mmol/L Normal 3.5-5.1 [facility] Comment on above: Performed By: #### E TOH4, BMP3, PT/AP, HEMOG #### [facility] [address] [place], [place] Sodium [Moles/Vol] 133 mmol/L Low 135-145 [facility] Comment on above: Performed By: #### E TOH4, BMP3, PT/AP, HEMOG #### [facility] [address] [place], [place]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 The patient denies glaucoma, denies eye injury/surgery, does not wear glasses or contacts. Ear/Nose/Throat: The patient notes allergies, denies hayfever, denies ear infections, and denies bloody noses. Cardiovascular: The patient denies chest pain, denies heart disease, notes high blood pressure,denies cardiac stent, denies prior heart attack, denies irregular heart beat, denies high cholesterol, denies poor circulation, denies heart failure, other cardiac issues, denies claudication, denies cold feet, denies peripheral arterial stent. Respiratory: The patient denies tuberculosis, denies pneumonia, denies frequent cough, denies pulmonary embolism, notes shortness of breath, and denies coughing up blood. Gastrointestinal: The patient denies difficulty swallowing, notes acid reflux, denies ulcers, denies vomiting, denies jaundice/hepatitis, denies gallbladder problems, denies black or tarry stools, denies hemorrhoids, denies bleeding from rectum, denies diverticulitis, denies constipation, denies diarrhea, denies loss of stool control, and denies hernias. Kidney/Bladder: The patient denies kidney stones, denies urine infections, and denies bloody urine. Skin: The patient denies a history of skin cancer, denies bleeding/changing moles, and denies a history of skin rash. Neurologic: The patient denies a history of epilepsy/convulsions, notes headaches, notes head/spinal injuries, and denies stroke/TIA. Psychiatric: The patient notes psychiatric medications (antidepressant), notes depression, and denies voices, notes substance abuse. Endocrine: The patient denies thyroid disorders, denies diabetes, and denies hormonal problems. Hematologic: The patient denies a history of bruising, denies bleeding, and denies anemia, denies blood clots. Infections: The patient denies a history of measles and mumps, denies rheumatic fever, and denies sexually transmitted diseases. Musculoskeletal: The patient notes back pain/injury, denies back problems, denies sciatica, denies knee/foot trouble, denies arthritis, or denies gout. When was patient's last Mammogram screening? N/A Last Colonoscopy: None noted Melissa Santana LPN documented in this encounter [facility] 12-04-2024 Note HNO ID: [id number] Author: MELISSA SANTANA LPN Service: ? Author Type: LICENSED NURSE Type: Progress Notes Filed: 12/04/2024 14:47 Note Text: REVIEW OF SYSTEMS: General: The patient denies fatigue, denies weight loss, denies weight gain, denies feeling hot, and denies feelings of cold. Eyes: The patient denies glaucoma, denies eye injury/surgery, does not wear glasses or contacts. Ear/Nose/Throat: The patient notes allergies, denies hayfever, denies ear infections, and denies bloody noses. Cardiovascular: The patient denies chest pain, denies heart disease, notes high blood pressure,denies cardiac stent, denies prior heart attack, denies irregular heart beat, denies high cholesterol, denies poor circulation, denies heart failure, other cardiac issues, denies claudication, denies cold feet, denies peripheral arterial stent. Respiratory: The patient denies tuberculosis, denies pneumonia, denies frequent cough, denies pulmonary embolism, notes shortness of breath, and denies coughing up blood. Gastrointestinal: The patient denies difficulty swallowing, notes acid reflux, denies ulcers, denies vomiting, denies jaundice/hepatitis, denies gallbladder problems, denies black or tarry stools, denies hemorrhoids, denies bleeding from rectum, denies diverticulitis, denies constipation, denies diarrhea, denies loss of stool control, and denies hernias. Kidney/Bladder: The patient denies kidney stones, denies urine infections, and denies bloody urine. Skin: The patient denies a history of skin cancer, denies bleeding/changing moles, and denies a history of skin rash. Neurologic: The patient denies a history of epilepsy/convulsions, notes headaches, notes head/spinal injuries, and denies stroke/TIA. Psychiatric: The patient notes psychiatric medications (antidepressant), notes depression, and denies voices, notes substance abuse. Endocrine: The patient denies thyroid disorders, denies diabetes, and denies hormonal problems. Hematologic: The patient denies a history of bruising, denies bleeding, and denies anemia, denies blood clots. Infections: The patient denies a history of measles and mumps, denies rheumatic fever, and denies sexually transmitted diseases. Musculoskeletal: The patient notes back pain/injury, denies back problems, denies sciatica, denies knee/foot trouble, denies arthritis, or denies gout. When was patient's last Mammogram screening? N/A Last Colonoscopy: None noted Melissa Santana LPN [facility] 11-27-2024 Note HNO ID: [id number] Author: UCHE PHOENIX MD Service: ? Author Type: Physician Type: Progress Notes Filed: 11/27/2024 14:40 Note Text: Patient presents with: Other: I think it's a boil in butt crack - Entered by patient Cyst: Pilonidal cyst x5 days HPI: Skin Lesion: Location: upper midline between buttocks to the left side Duration: flared up for 5 days. He has had the lesion flare up on multiple occasions but has never had medical care for it. Pruritis/Pain: painful Change: Drainage/blister/pustule/ulcerat ion: no drainage Treatment: warm compress MEDICATIONS: amoxicillin-clavulanate potassium (AUGMENTIN) 875-125 mg per tablet Take 1 tablet by mouth two times a day for 5 days. VITAMIN D-3 10 mcg (400 unit) cap tamsulosin (FLOMAX) 0.4 mg Take 1 capsule by mouth once daily. amLODIPine (NORVASC) 10 mg tablet Take 1 tablet by mouth once daily. acetaminophen (TYLENOL) 500 mg tablet Take 500 mg by mouth every 8 hours as needed. TRIAMCINOLONE ACETONIDE (NASACORT NASAL) Use in the nose as needed. ALLERGIES: ALLERGIES Allergen Reactions Chantix [Vareniclin* Other: See Comments Suicidal thoughts VITALS: BP 154/95 Pulse 81 Temp 36.7 ?C (98.1 ?F) Resp 18 Wt 77.3 kg (170 lb 6.7 oz) SpO2 99% BMI 25.91 kg/m? PHYSICAL EXAM: GEN: pleasant, no acute distress, alert HEENT: PERRL, EOMI, MMM NECK: supple, HEART: regular rate, regular rhythm, no murmurs LUNGS: clear to auscultation, no wheezes or crackles, no increased WOB ABD: soft, non-distended, no masses palpated, non-tender BUTTOCK: 2cm tender subcutaneous mass in the gluteal cleft to the left of midline over to coccyx . ASSESSMENT/PLAN: 1. Pilonidal cyst with abscess - ICD9: 685.0, ICD10: L05.01 Start - AMOXICILLIN 875 MG-POTASSIUM CLAVULANATE 125 MG TABLET Continue warm compress. - CONSULT TO GENERAL SURGERY to discuss options (definitive vs episodic treatment). Follow up sooner for IANDD if there is increasing pain, swelling, or fever. Uche Phoenix MD [facility] 11-27-2024 History of Presen t illness Narrative Patient presents with: Other: I think it's a boil in butt crack - Entered by patient Cyst: Pilonidal cyst x5 days HPI: Skin Lesion: Location: upper midline between buttocks to the left side Duration: flared up for 5 days. He has had the lesion flare up on multiple occasions but has never had medical care for it. Pruritis/Pain: painful Change: Drainage/blister/pustule/ulcerat ion: no drainage Treatment: warm compress MEDICATIONS: amoxicillin-clavulanate potassium (AUGMENTIN) 875-125 mg per tablet Take 1 tablet by mouth two times a day for 5 days. VITAMIN D-3 10 mcg (400 unit) cap tamsulosin (FLOMAX) 0.4 mg Take 1 capsule by mouth once daily. amLODIPine (NORVASC) 10 mg tablet Take 1 tablet by mouth once daily. acetaminophen (TYLENOL) 500 mg tablet Take 500 mg by mouth every 8 hours as needed. TRIAMCINOLONE ACETONIDE (NASACORT NASAL) Use in the nose as needed. ALLERGIES: ALLERGIES Allergen Reactions Chantix [Vareniclin* Other: See Comments Suicidal thoughts VITALS: BP 154/95 Pulse 81 Temp 36.7 C (98.1 F) Resp 18 Wt 77.3 kg (170 lb 6.7 oz) SpO2 99% BMI 25.91 kg/m PHYSICAL EXAM: GEN: pleasant, no acute distress, alert HEENT: PERRL, EOMI, MMM NECK: supple, HEART: regular rate, regular rhythm, no murmurs LUNGS: clear to auscultation, no wheezes or crackles, no increased WOB ABD: soft, non-distended, no masses palpated, non-tender BUTTOCK: 2cm tender subcutaneous mass in the gluteal cleft to the left of midline over to coccyx . ASSESSMENT/PLAN: 1. Pilonidal cyst with abscess - ICD9: 685.0, ICD10: L05.01 Start - AMOXICILLIN 875 MG-POTASSIUM CLAVULANATE 125 MG TABLET Continue warm compress. - CONSULT TO GENERAL SURGERY to discuss options (definitive vs episodic treatment). Follow up sooner for I&D if there is increasing pain, swelling, or fever. Uche Phoenix MD documented in this encounter [facility] 10-29-2023 Hospital Discharg e instructions Patient Education 10/29/2023 20:01:38 Viral Syndrome (Adult) Viral Syndrome (Adult) A viral illness may cause a number of symptoms such as fever. Other symptoms depend on the part of the body that the virus affects. If it settles in your nose, throat, and lungs, it may cause cough, sore throat, congestion, runny nose, headache, earache and other ear symptoms, or shortness of breath. If it settles in your stomach and intestinal tract, it may cause nausea, vomiting, cramping, and diarrhea. Sometimes it causes generalized symptoms like aching all over, feeling tired, loss of energy, or loss of appetite. A viral illness usually lasts anywhere from several days to several weeks, but sometimes it lasts longer. In some cases, a more serious infection can look like a viral syndrome in the first few days of the illness. You may need another exam and additional tests to know the difference. Watch for the warning signs listed below for when to seek medical advice. Home care Follow these guidelines for taking care of yourself at home: If symptoms are severe, rest at home for the first 2 to 3 days. Stay away from cigarette smoke - both your smoke and the smoke from others. You may use pohb-yrx-dqjeiuv acetaminophen or ibuprofen for fever, muscle aching, and headache, unless another medicine was prescribed for this. If you have chronic liver or kidney disease or ever had a stomach ulcer or gastrointestinal bleeding, talk with your healthcare provider before using these medicines. No one who is younger than 18 and ill with a fever should take aspirin. It may cause severe disease or . Your appetite may be poor, so a light diet is fine. Avoid dehydration by drinking 8 to 12, 8-ounce glasses of fluids each day. This may include water; orange juice; lemonade; apple, grape, and cranberry juice; clear fruit drinks; electrolyte replacement and sports drinks; and decaffeinated teas and coffee. If you have been diagnosed with a kidney disease, ask your healthcare provider how much and what types of fluids you should drink to prevent dehydration. If you have kidney disease, drinking too much fluid can cause it build up in the your body and be dangerous to your health. Tble-tcz-hovjcbh remedies won't shorten the length of the illness but may be helpful for symptoms such as cough, sore throat, nasal and sinus congestion, or diarrhea. Don't use decongestants if you have high blood pressure. Follow-up care Follow up with your healthcare provider if you do not improve over the next week. Call 911 Call 911 if any of the following occur: Convulsion Feeling weak, dizzy, or like you are going to faint Chest pain, or more than mild shortness of breath When to seek medical advice Call your healthcare provider right away if any of these occur: Cough with lots of colored sputum (mucus) or blood in your sputum Chest pain, shortness of breath, wheezing, or trouble breathing Severe headache; face, neck, or ear pain Severe, constant pain in the lower right side of your belly (abdominal) Continued vomiting (can t keep liquids down) Frequent diarrhea (more than 5 times a day); blood (red or black color) or mucus in diarrhea Feeling weak, dizzy, or like you are going to faint Extreme thirst Fever of 100.4 F (38 C) or higher, or as directed by your healthcare provider [id number] [employer]. [address] [place] [address]. All rights reserved. This information is not intended as a substitute for professional medical care. Always follow your healthcare professional's instructions. Follow Up Care 10/29/2023 19:03:28 With:Call Physician Referral Address:Unknown When:3-5 days With:Follow up with primary care provider Address:Unknown When:3-5 days Comments:Follow-up as needed if symptoms or not improving.Quarantine at home until you get the results of the viral testing.Push fluids and rest.Vaporizer at bedside.Use Tylenol, Advil or Aleve for pain and fever as needed.Use vkoi-mcc-odroptk cough and cold medicines for symptomatic relief as needed.Return to the ED if symptoms worsen. [facility] 10-29-2023 Note Discharge Instructions Thank you for allowing [place] to assist you with your healthcare needs. The following is important discharge information regarding your hospital visit. Diagnosis from Today's Visit Head pain What to Do Next Instructions from Your Care Team No qualifying data available. Post Acute Orders No qualifying data available. You Need to Schedule the Following Appointments Follow Up with Call Physician Referral When Within 3-5 days Follow Up with Follow up with primary care provider When Within 3-5 days Why: Follow-up as needed if symptoms or not improving. Quarantine at home until you get the results of the viral testing. Push fluids and rest. Vaporizer at bedside. Use Tylenol, Advil or Aleve for pain and fever as needed. Use xvth-efr-orzbggl cough and cold medicines for symptomatic relief as needed. Return to the ED if symptoms worsen. Allergies No Known Medication Allergies Medications Please ask your primary doctor or pharmacist before taking any other medication not listed, including over the counter drugs, herbal medications, vitamins and or supplements as they may interact with your home medications. Please take this list to your next doctor s visit. Bring all medications you take, including over the counter medications, herbals and other supplements with you to your doctor s visit. Patients and families are reminded to discard old lists and to update any records with all medication providers or retail pharmacies. Education Materials Viral Syndrome (Adult) A viral illness may cause a number of symptoms such as fever. Other symptoms depend on the part of the body that the virus affects. If it settles in your nose, throat, and lungs, it may cause cough, sore throat, congestion, runny nose, headache, earache and other ear symptoms, or shortness of breath. If it settles in your stomach and intestinal tract, it may cause nausea, vomiting, cramping, and diarrhea. Sometimes it causes generalized symptoms like aching all over, feeling tired, loss of energy, or loss of appetite. A viral illness usually lasts anywhere from several days to several weeks, but sometimes it lasts longer. In some cases, a more serious infection can look like a viral syndrome in the first few days of the illness. You may need another exam and additional tests to know the difference. Watch for the warning signs listed below for when to seek medical advice. Home care Follow these guidelines for taking care of yourself at home: If symptoms are severe, rest at home for the first 2 to 3 days. Stay away from cigarette smoke - both your smoke and the smoke from others. You may use uoma-dnx-aufycnj acetaminophen or ibuprofen for fever, muscle aching, and headache, unless another medicine was prescribed for this. If you have chronic liver or kidney disease or ever had a stomach ulcer or gastrointestinal bleeding, talk with your healthcare provider before using these medicines. No one who is younger than 18 and ill with a fever should take aspirin. It may cause severe disease or . Your appetite may be poor, so a light diet is fine. Avoid dehydration by drinking 8 to 12, 8-ounce glasses of fluids each day. This may include water; orange juice; lemonade; apple, grape, and cranberry juice; clear fruit drinks; electrolyte replacement and sports drinks; and decaffeinated teas and coffee. If you have been diagnosed with a kidney disease, ask your healthcare provider how much and what types of fluids you should drink to prevent dehydration. If you have kidney disease, drinking too much fluid can cause it build up in the your body and be dangerous to your health. Onnj-zvn-biwrsjx remedies won't shorten the length of the illness but may be helpful for symptoms such as cough, sore throat, nasal and sinus congestion, or diarrhea. Don't use decongestants if you have high blood pressure. Follow-up care Follow up with your healthcare provider if you do not improve over the next week. Call 911 Call 911 if any of the following occur: Convulsion Feeling weak, dizzy, or like you are going to faint Chest pain, or more than mild shortness of breath When to seek medical advice Call your healthcare provider right away if any of these occur: Cough with lots of colored sputum (mucus) or blood in your sputum Chest pain, shortness of breath, wheezing, or trouble breathing Severe headache; face, neck, or ear pain Severe, constant pain in the lower right side of your belly (abdominal) Continued vomiting (can t keep liquids down) Frequent diarrhea (more than 5 times a day); blood (red or black color) or mucus in diarrhea Feeling weak, dizzy, or like you are going to faint Extreme thirst Fever of 100.4 F (38 C) or higher, or as directed by your healthcare provider [id number] [employer]. [address] [place] [address]. All rights reserved. This information is not intended as a substitute for professional medical care. Always follow your healthcare professional's instructions. Additional Information VACCINATE! IT SAVES LIVES! Members of the community who have not yet received the COVID-19 vaccine and would like to receive it can visit one of [facility] vaccine clinics. There are many vaccine clinic locations within the [facility]. For locations and available times, please visit [email or web address].[place]. gov/. It is important to note that some COVID mobile vaccine clinics are held outdoors and may be canceled in rainy or stormy conditions. To learn more about pediatric vaccinations (ages 5-11), we invite you to visit the [facility] webpage. https://www.[facility].org/p ages/0531-Dzcvf-Mqayvptyqqd-Freq ovpjik-Ihoyr-Wuelidlxh.html To learn more about the COVID-19 vaccine, we invite you to visit the CDC website for a list of frequently asked questions. https://www.cdc.gov/coronavirus/ 2019-ncov/vaccines/faq.html [facility] [employer] Patient Portal Access Instructions: Stay connected with your healthcare team and access your personal medical information anytime with the [employer] Patient Portal. If you would like a full copy of your medical records please contact the [facility] Medical Records Department Saturday through Saturday between 8a.m. and 4:30p.m. Please follow the directions below to access the portal: 1.Access the email account you provided upon registration to the [facility].2.Look for an invitation email from [facility].3.Open the email and access the invitation link: Accept Invitation to [facility].Fill in the required garcia to create your account. Sign into [email or web address] with your username and password that you created in the above steps to stay up to date. You can then view a summary of results, a summary of your visits, and the ability to download your summaries to your computer or send the information securely to a physician. Remember that your healthcare information is confidential, so carefully consider who you will allow to register on the [facility] [employer] Patient Portal for access to your information. You can also access the [employer] Patient Portal on the [employer] malcolm. Simply click on Health Records under Health Data and then click on the [employer] logo. HOW TO SAFELY DISPOSE OF PRESCRIPTION MEDICATIONS Please use one of the following methods to safely dispose of your unused medications. 1.Use a drug disposal kit: the drug disposal pouch allows you to safely discard your old and unused drugs. Ask your nurse to give you one when you are discharged.2.Visit a local take-back location: Many local pharmacies and police departments have programs that collect old and unwanted prescription drugs. Call your local pharmacy or go to http://bit.CromoUp/0H4Nx5x to find one close to you.3.Make use of household items: Use cat litter or old coffee grounds to dispose medications if other options are not available. Mix your drugs with these household products, seal them in an airtight container and throw it into the garbage. Call [facility]: [phone] to be sure your drugs can be disposed of in this way. Some medicines may require a different approach.4.Never flush your medications down the toilet. IF YOU HAVE BEEN PRESCRIBED AN OPIOIDS FOR PAIN If you have been prescribed an opioid (such as hydrocodone, oxycodone or morphine), it is critical to understand the possible side effects and risks of opioid pain medications. Even when taken as directed, opioids can have several side effects including: Tolerance, meaning you might need to take more of a medication for the same pain relief. Nausea, vomiting and/or constipation. Sleepiness, dizziness, dry mouth, confusion, depression or itching. Physical dependence, meaning you have withdrawal symptoms when a medication is stopped ? this can develop within a few days. KNOW YOUR RESPONSIBILITIES It is important to know exactly how much and how often to take the opioid pain medications you are prescribed. Never take opioids in higher amounts or more often than prescribed. Do not combine opioids with alcohol or other drugs that cause drowsiness, such as benzodiazepines, also known as benzos, including diazepam and alprazolam, muscle relaxants or sleep aids. Never sell or share prescription opioids. This is illegal. Store opioids in a secure place and out of reach of others (including children, family, friends and visitors). The last page(s) of this document has been signed and retained as a CHART COPY Signatures Patient Education Materials Viral Syndrome (Adult) Medication Leaflets My discharge plan and instructions have been reviewed and explained to me and I,MIR THOMPSON understand my current condition and have read and understand these discharge instructions. I have received a written copy of the plan/instructions. If I have questions, I am aware that I should contact my doctor. 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 FALL SCREENING: Has the patient had 2 falls in the last year or 1 fall with injury or currently using an Ambulatory Assistive Device (Walker, Cane, Wheelchair, Crutches, etc.)? No PATIENT GENDER DATA: Male PATIENT RELEVANT IMPLANT DATA REVIEWED: Yes RADIOLOGY DEPARTMENT: CT; Exam(s) Completed: Chest PERIPHERAL IV DATA: Not applicable SIGNED BY: RT Alec(R) March 29, 2023 3:39 PM documented in this encounter [facility] 02-27-2023 Miscellaneous Notes LM for patient to contact office. Ramona Rebollar MA Needs scheduled on 1/ of day that no new patients are being seen. Already new est care for 440p the day he is scheduled. Message left for patient regarding this. documented in this encounter [facility] 12-11-2022 Procedure note [facility] 12-11-2022 Procedure note [facility] Evaluation + Plan note No data available for this section [facility] Evaluation note Diagnosis Onset Date Encounter for screening for malignant neoplasm of colon acute [facility] Work Phone: Evaluation noteNo assessment information available [facility] Work Phone: Evaluation note* Diagnosis Lung nodules Other nonspecific abnormal finding of lung field [facility] Encounter to establish care- Primary Other reasons for seeking consultation Dermatitis Contact dermatitis and other eczema, due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
[2025-08-15 05:31] VITALS: BP 135/81; PULSE 98; RESP 18; TEMP 36.8; O2SAT 98
[2025-08-15] MEDS: Smz/Tmp Ds Tablet 1 TABLET PO (05:58)
== END 2025-08-15 06:06 | disposition home or self-care (01) ==
PROVIDERS: Emergency Provider Emergency Medicine; Visit Provider Emergency Medicine
DX: L02.31 Cutaneous abscess of buttock (principal); I10 Essential (primary) hypertension; F17.210 Nicotine dependence, cigarettes, uncomplicated; K21.9 Gastro-esophageal reflux disease without esophagitis
CPT/HCPCS: 10060; 99282